=== PATIENT | female | born 1960 | race American Indian/Alaskan Native ===

== ENCOUNTER 2023-09-25 07:48 | Inpatient (IN) ==
[2023-09-19 13:23] LABS: Basophils # (Auto) 0.04 K/mcL (0.00-0.30); Basophils % (Auto) 0.5 % (0.0-2.0); Eosinophils # (Auto) 0.08 K/mcL (0.00-0.70); Hematocrit 51.6 % (34.1-44.9); Hemoglobin 16.5 g/dL (11.2-15.7); Lymphocytes # (Auto) 1.51 K/mcL (1.50-4.80); Lymphocytes % (Auto) 19.7 % (15.5-49.0); Monocytes # (Auto) 0.48 K/mcL (0.10-0.90); Monocytes % (Auto) 6.3 % (1.0-12.0); Neutrophils % (Auto) 72.1 % (38.0-78.0); Platelet Count 277 K/mcL (140-440); RBC 5.55 M/mcL (3.59-5.38); Red Cell Distribution Width 13.5 % (11.5-14.5); WBC 7.7 K/mcL (4.5-11.0)
[2023-09-19 14:33] LABS: Estimated Average Glucose(eAG) 120 mg/dL; Hemoglobin A1C 5.8 % Hgb (4.0-6.0)
[2023-09-19 16:22] LABS: Prothrombin Time 13.1 sec (11.9-14.5)
[2023-09-19 17:01] LABS: Blood Urea Nitrogen 14 mg/dL (8-23); Calcium 9.6 mg/dL (8.6-10.4); Carbon Dioxide 22 mmol/L (22-30); Chloride 95 mmol/L (96-108); Glomerular Filtration Rate 59; Glucose 84 mg/dL (70-105)
[2023-09-24 10:12] LABS: Appearance,Urine Slightly Cloudy (Clear); Bacteria,Urine Many /hpf (0); Bilirubin,Urine Negative (Negative); Color,Urine Yellow; Culture Indicated,Urine Yes; Glucose,Urine (UA) Negative (Negative); Ketones,Urine Negative (Negative); Leukocyte Esterase,Urine Trace /uL (Negative); Nitrate,Urine Positive (Negative); PH,Urine 5.5 (5.0-9.0); Protein,Urine Negative (Negative); Specific Gravity,Urine 1.025 (1.000-1.035); Urine RBC 0 /hpf (0-3); Urine Squamous Epithelial Cell 4 /hpf (0-4); Urine WBC 14 /hpf (0-4); Urobilinogen,Urine Normal
[~2023-09-25 07:48] MED LIST: 0.9 % SODIUM CHLORIDE 250 ML IV SCH; CELECOXIB 200 MG CAPSULE PO SCH; PREGABALIN 100 MG CAPSULE PO SCH; ceFAZolin 2 GM in DEXTROSE 5% IN WATER 50 ML IV SCH; oxyCODONE 10 MG TAB.ER.12H PO SCH
[2023-09-25] MEDS ORDERED: PROPOFOL 200 MG/20 ML VIAL IV ONE (08:39)
[2023-09-25] MEDS ORDERED: ROCURONIUM 10 MG/ML ML IV ONE (08:39)
[2023-09-25] MEDS ORDERED: TRANEXAMIC ACID 1,000 MG/10 ML VIAL ONE (08:39)
[2023-09-25] MEDS ORDERED: ONDANSETRON 4 MG/2 ML VIAL ONE (08:39)
[2023-09-25] MEDS ORDERED: fentaNYL 100 MCG/2 ML VIAL IV ONE (08:39)
[2023-09-25] MEDS ORDERED: DEXAMETHASONE 10 MG/ML VIAL IV ONE (10:50)
[2023-09-25] MEDS ORDERED: ROPIVACAINE HCL/PF 30 ML VIAL IJ ONE (10:50)
[2023-09-25] MEDS ORDERED: METHOCARBAMOL 1,000 MG/10 ML VIAL IV PRN (11:25)
[2023-09-25] MEDS ORDERED: ONDANSETRON 4 MG/2 ML VIAL IV PRN ×2 (11:25→11:37)
[2023-09-25] MEDS ORDERED: IPRATROPIUM/ALBUTEROL 3 ML AMPUL.NEB NEB PRN (11:25)
[2023-09-25] MEDS ORDERED: NALOXONE HCL 0.4 MG/ML VIAL IV PRN (11:25)
[2023-09-25] MEDS ORDERED: fentaNYL 100 MCG/2 ML VIAL IV PRN (11:25)
[2023-09-25] MEDS ORDERED: HYDROmorphone 0.5 MG/0.5 ML SYRINGE IV PRN (11:25)
[2023-09-25] MEDS ORDERED: SUGAMMADEX SODIUM 200 MG/2 ML VIAL IV ONE (11:30)
[2023-09-25] MEDS ORDERED: CIPROFLOXACIN 400 MG/200 ML BAG IV SCH (11:30)
[2023-09-25] MEDS ORDERED: TRANEXAMIC ACID 1,000 MG/10 ML VIAL IV ONE (11:37)
[2023-09-25] MEDS ORDERED: POLYETHYLENE GLYCOL 3350 17 GM PACKET PO PRN (11:37)
[2023-09-25] MEDS ORDERED: ONDANSETRON 4 MG ODT TABLET SL PRN (11:37)
[2023-09-25] MEDS ORDERED: BENZOCAINE/MENTHOL 1 LOZENGE PO PRN (11:37)
[2023-09-25] MEDS ORDERED: BISACODYL 10 MG SUPP.RECT PR PRN (11:37)
[2023-09-25] MEDS ORDERED: FLEETS ADULT 1 DOSE ENEMA PR PRN (11:37)
[2023-09-25] MEDS ORDERED: morphine 4 MG/ML VIAL IV PRN (11:37)
[2023-09-25] MEDS ORDERED: MAGNESIUM HYDROXIDE 30 ML ORAL.SUSP PO PRN (11:37)
[2023-09-25] MEDS ORDERED: KETOROLAC 15 MG/ML VIAL IV PRN (11:37)
[2023-09-25] MEDS ORDERED: PHENYLephrine 1 MG/10 ML SYRINGE (ANEST) ONE (11:40)
[2023-09-25] MEDS ORDERED: METHOCARBAMOL 750 MG TABLET PO SCH (11:45)
[2023-09-25] MEDS: 0.9 % SODIUM CHLORIDE 1,000 ML IV SCH ×2 (13:13→21:58)
[2023-09-25] MEDS: 0.9 % SODIUM CHLORIDE 10 ML SYRINGE IV SCH ×2 (13:32→22:03)
[2023-09-25] MEDS: ceFAZolin 1 GM VIAL IV SCH (16:24)
[2023-09-25] MEDS: PANTOPRAZOLE 40 MG TABLET PO SCH (16:25)
[2023-09-25] MEDS: PREGABALIN 100 MG CAPSULE PO SCH ×2 (16:25→21:20)
[2023-09-25] MEDS: SENNOSIDES 1 TABLET PO SCH (21:19)
[2023-09-25] MEDS: ASPIRIN 81 MG TAB.CHEW PO SCH (21:20)
[2023-09-25] MEDS: DOCUSATE SODIUM 100 MG CAPSULE PO SCH (21:20)
[2023-09-25] MEDS: HYDROcodone/APAP 10/325MG TABLET PO PRN (21:28)
[2023-09-26] MEDS: ceFAZolin 1 GM VIAL IV SCH (00:04)
[2023-09-26] MEDS: 0.9 % SODIUM CHLORIDE 1,000 ML IV SCH ×2 (04:06→12:45)
[2023-09-26] MEDS: 0.9 % SODIUM CHLORIDE 10 ML SYRINGE IV SCH ×3 (05:29→22:20)
[2023-09-26] MEDS: PANTOPRAZOLE 40 MG TABLET PO SCH ×2 (07:20→17:30)
[2023-09-26 07:35] LABS: Hematocrit 34.3 % (34.1-44.9); Hemoglobin 10.8 g/dL (11.2-15.7)
[2023-09-26] MEDS: HYDROcodone/APAP 10/325MG TABLET PO PRN ×2 (08:47→17:30)
[2023-09-26] MEDS: PREGABALIN 100 MG CAPSULE PO SCH ×3 (08:47→20:50)
[2023-09-26] MEDS: DOCUSATE SODIUM 100 MG CAPSULE PO SCH ×2 (08:47→20:50)
[2023-09-26] MEDS: ASPIRIN 81 MG TAB.CHEW PO SCH ×2 (08:47→20:50)
[2023-09-26] MEDS: DULoxetine 30 MG CAPSULE PO SCH (08:47)
[2023-09-26] MEDS: CHLORTHALIDONE 25 MG TABLET PO SCH (08:49)
[2023-09-26] MEDS: SENNOSIDES 1 TABLET PO SCH (20:50)
[2023-09-27] MEDS: 0.9 % SODIUM CHLORIDE 1,000 ML IV SCH ×5 (01:45→20:13)
[2023-09-27] MEDS: HYDROcodone/APAP 10/325MG TABLET PO PRN ×2 (04:42→10:36)
[2023-09-27 06:44] LABS: Hemoglobin 9.7 g/dL (11.2-15.7)
[2023-09-27] MEDS: 0.9 % SODIUM CHLORIDE 10 ML SYRINGE IV SCH ×3 (06:44→21:43)
[2023-09-27] MEDS: PANTOPRAZOLE 40 MG TABLET PO SCH ×2 (07:49→15:59)
[2023-09-27] MEDS: ASPIRIN 81 MG TAB.CHEW PO SCH ×2 (08:28→21:42)
[2023-09-27] MEDS: PREGABALIN 100 MG CAPSULE PO SCH ×3 (08:28→21:42)
[2023-09-27] MEDS: CHLORTHALIDONE 25 MG TABLET PO SCH (08:28)
[2023-09-27] MEDS: METHOCARBAMOL 750 MG TABLET PO PRN (08:28)
[2023-09-27] MEDS: DOCUSATE SODIUM 100 MG CAPSULE PO SCH ×2 (08:28→21:42)
[2023-09-27] MEDS: DULoxetine 30 MG CAPSULE PO SCH (08:28)
[2023-09-27] MEDS: SENNOSIDES 1 TABLET PO SCH (21:42)
[2023-09-28] MEDS: 0.9 % SODIUM CHLORIDE 1,000 ML IV SCH ×3 (04:11→19:39)
[2023-09-28] MEDS: 0.9 % SODIUM CHLORIDE 10 ML SYRINGE IV SCH ×3 (06:35→20:16)
[2023-09-28] MEDS: DOCUSATE SODIUM 100 MG CAPSULE PO SCH ×2 (08:17→20:14)
[2023-09-28] MEDS: PANTOPRAZOLE 40 MG TABLET PO SCH ×2 (08:17→15:46)
[2023-09-28] MEDS: PREGABALIN 100 MG CAPSULE PO SCH ×3 (08:17→20:14)
[2023-09-28] MEDS: ASPIRIN 81 MG TAB.CHEW PO SCH ×2 (08:17→20:14)
[2023-09-28] MEDS: DULoxetine 30 MG CAPSULE PO SCH (08:17)
[2023-09-28] MEDS: CHLORTHALIDONE 25 MG TABLET PO SCH (08:18)
[2023-09-28] MEDS: HYDROcodone/APAP 10/325MG TABLET PO PRN ×2 (10:15→10:16)
[2023-09-28] MEDS: METHOCARBAMOL 750 MG TABLET PO PRN (10:17)
[2023-09-28] MEDS: SENNOSIDES 1 TABLET PO SCH (20:14)
[2023-09-29] MEDS: 0.9 % SODIUM CHLORIDE 1,000 ML IV SCH ×2 (04:21→10:45)
[2023-09-29] MEDS: 0.9 % SODIUM CHLORIDE 10 ML SYRINGE IV SCH (05:41)
[2023-09-29] MEDS: PANTOPRAZOLE 40 MG TABLET PO SCH (08:05)
[2023-09-29] MEDS: ASPIRIN 81 MG TAB.CHEW PO SCH (08:05)
[2023-09-29] MEDS: HYDROcodone/APAP 10/325MG TABLET PO PRN ×2 (08:05→12:16)
[2023-09-29] MEDS: METHOCARBAMOL 750 MG TABLET PO PRN (08:05)
[2023-09-29] MEDS: DULoxetine 30 MG CAPSULE PO SCH (08:05)
[2023-09-29] MEDS: PREGABALIN 100 MG CAPSULE PO SCH (08:05)
[2023-09-29] MEDS: DOCUSATE SODIUM 100 MG CAPSULE PO SCH (08:05)
[2023-09-29] MEDS: CHLORTHALIDONE 25 MG TABLET PO SCH (08:06)
== END 2023-09-29 13:30 | DRG 470 ==
LOC: SUR 07:48 → MEDSUR 13:06
PROVIDERS: ADMIT Orthopaedic Surgery Sports Medicine; ATTEND Orthopaedic Surgery Sports Medicine

== ENCOUNTER 2024-04-02 12:20 | Inpatient (IN) ==
[2024-04-02] MEDS ORDERED: IOPAMIDOL 100 ML BOTTLE IV ONE (12:21)
[2024-04-02 13:04] LABS: Basophils # (Auto) 0.02 K/mcL (0.00-0.30); Basophils % (Auto) 0.1 % (0.0-2.0); Eosinophils # (Auto) 0.03 K/mcL (0.00-0.70); Eosinophils % (Auto) 0.2 % (0.0-7.0); Hematocrit 36.9 % (34.1-44.9); Hemoglobin 11.5 g/dL (11.2-15.7); Lymphocytes # (Auto) 0.96 K/mcL (1.50-4.80); Lymphocytes % (Auto) 5.9 % (15.5-49.0); Mean Cell Volume 77.8 fL (80.0-100.0); Mean Corpuscular HGB Conc 31.2 g/dL (31.0-36.0); Mean Platelet Volume 10.3 fL (8.8-12.5); Monocytes # (Auto) 0.75 K/mcL (0.10-0.90); Monocytes % (Auto) 4.6 % (1.0-12.0); Neutrophils % (Auto) 88.8 % (38.0-78.0); Platelet Count 363 K/mcL (140-440); RBC 4.74 M/mcL (3.59-5.38); Red Cell Distribution Width 17.9 % (11.5-14.5); WBC 16.3 K/mcL (4.5-11.0)
[2024-04-02 13:30] LABS: Alcohol, Blood < 10.1 mg/dL; Alcohol,Blood < 0.010 gm/dL (<0.010)
[2024-04-02 13:32] LABS: ALT/SGPT < 5 U/L (<40); AST/SGOT 16 U/L (<32); Albumin 3.8 gm/dL (3.2-5.2); Alkaline Phosphatase 115 U/L (39-117); Bilirubin,Total 0.5 mg/dL (0.1-1.0); Blood Urea Nitrogen 16 mg/dL (8-23); Calcium 9.1 mg/dL (8.6-10.4); Carbon Dioxide 29 mmol/L (22-30); Chloride 97 mmol/L (96-108); Glomerular Filtration Rate 67; Glucose 103 mg/dL (70-105); Potassium 3.4 mmol/L (3.3-5.1); Sodium 138 mmol/L (133-145); Thyroid Stimulating Hormone 0.71 uIU/mL (0.27-5.01)
[2024-04-02] MEDS: cefTRIAXone 2 GM in DEXTROSE 5% IN WATER 50 ML IV ONE ×2 (14:50→15:13)
[2024-04-02 15:01] LABS: Free T4 (Free Thyroxine) 1.35 ng/dL (0.93-1.70)
[2024-04-02] MEDS: DEXTROSE 5% IN WATER 50 ML IV ONE (15:13)
[2024-04-02] MEDS: 0.9 % SODIUM CHLORIDE 1,000 ML IV ONE ×3 (15:15→23:13)
[2024-04-02] MEDS: ACETAMINOPHEN 1,000 MG/100 ML BAG IV ONE (15:41)
[2024-04-02 16:00] LABS: Appearance,Urine Clear (Clear); Bilirubin,Urine Negative (Negative); Color,Urine Yellow; Culture Indicated,Urine No; Glucose,Urine (UA) Negative (Negative); Ketones,Urine Negative (Negative); Leukocyte Esterase,Urine Negative /uL (Negative); Nitrate,Urine Negative (Negative); Protein,Urine Negative (Negative); Urine Amorphous Crystals Many /hpf; Urine Blood Negative ery/mcL (Negative); Urine Hyaline Cast 2 /lph (0-2); Urine RBC 1 /hpf (0-3); Urine Squamous Epithelial Cell 2 /hpf (0-4); Urine WBC 2 /hpf (0-4); Urobilinogen,Urine Normal
[2024-04-02] MEDS: VANCOMYCIN 1,500 MG in 0.9 % SODIUM CHLORIDE 500 ML IV ONE (17:47)
[2024-04-02 18:11] LABS: Amphetamine Screen,Urine Suspect positive; Barbiturate Screen,Urine None detected; Cannabinoid Screen,Urine Suspect Positive; Cocaine Screen,Urine None detected; Opiate Screen,Urine None detected; Oxycodone, Urine Screen None detected; Phencyclidine Screen,Urine None detected
[2024-04-02 18:59] LABS: Anisocytosis 2+ (None Seen); Band Neutrophils % 7 % (0-10); Basophils % (Manual) 1 % (0-2); Eosinophils % (Manual) 2 % (0-7); Hypochromasia 1+ (None Seen); Lymphocytes % 6 % (15-49); Microcytosis 1+ (None Seen); Monocytes % (Manual) 2 % (1-12); Platelet Estimate NORMAL (Normal); RBC Morphology ABNORMAL (Normal); Segmented Neutrophils % 82 % (38-78)
[2024-04-02 19:08] LABS: C-Reactive Protein 7.8 mg/dL (0.03-0.80); Thyroid Stimulating Hormone 0.73 uIU/mL (0.27-5.01)
[2024-04-02] MEDS: AMPICILLIN SODIUM 1 GM in 0.9 % SODIUM CHLORIDE 50 ML IV ONE (19:57)
[2024-04-02 19:58] LABS: ABG Methemoglobin 0.3 % (0.4-1.5); Total Hemoglobin 11.4 gm/Dl (12.0-15.0); VBG Base Excess 3 (-2-3); VBG HCO3 27.8 mmol/L (24.0-28.0); VBG Oxygen Saturation 89.2 % (40.0-70.0); VBG PCO2 44.7 mmHg (41.0-51.0); VBG PH 7.41 U (7.32-7.42); VBG PO2 73.1 mmHg (25.0-40.0); VBG Total CO2 29.1 mmol/L (25.0-29.0)
[2024-04-02] MEDS: ACYCLOVIR SODIUM 500 MG VIAL IV ONE ×2 (19:59→23:59)
[2024-04-02] MEDS: DEXTROSE 5% IV ONE (20:29)
[2024-04-02] MEDS: ACYCLOVIR SODIUM IV ONE (20:29)
[2024-04-02] MEDS: WATER IV ONE (20:29)
[2024-04-02] MEDS ORDERED: SENNOSIDES 1 TABLET PO PRN (23:02)
[2024-04-02] MEDS ORDERED: VANCOMYCIN PER PHARMACY IV SCH (23:02)
[2024-04-02] MEDS ORDERED: POLYETHYLENE GLYCOL 3350 17 GM PACKET PO PRN (23:02)
[2024-04-02] MEDS ORDERED: MAGNESIUM SULFATE 2 GM/50 ML BAG IV PRN (23:02)
[2024-04-02] MEDS: CEFEPIME 2 GM VIAL IV SCH (23:59)
[2024-04-03 06:06] LABS: Hematocrit 33.3 % (34.1-44.9); Hemoglobin 10.1 g/dL (11.2-15.7); Mean Cell Volume 78.4 fL (80.0-100.0); Mean Corpuscular HGB Conc 30.3 g/dL (31.0-36.0); Mean Platelet Volume 10.6 fL (8.8-12.5); Platelet Count 299 K/mcL (140-440); RBC 4.25 M/mcL (3.59-5.38); Red Cell Distribution Width 17.7 % (11.5-14.5); WBC 7.6 K/mcL (4.5-11.0)
[2024-04-03 06:29] LABS: Hypochromasia 2+ (None Seen); Lymphocytes % 15 % (15-49); Monocytes % (Manual) 5 % (1-12); Platelet Estimate NORMAL (Normal); RBC Morphology ABNORMAL (Normal); Reactive Lymphocytes 1 % (0-2); Segmented Neutrophils % 79 % (38-78)
[2024-04-03 06:30] LABS: ALT/SGPT < 5 U/L (<40); AST/SGOT 14 U/L (<32); Albumin 3.2 gm/dL (3.2-5.2); Albumin/Globulin Ratio 0.9 (1.0-2.3); Alkaline Phosphatase 96 U/L (39-117); Bilirubin,Direct < 0.2 mg/dL (0-0.3); Bilirubin,Total 0.4 mg/dL (0.1-1.0); Blood Urea Nitrogen 10 mg/dL (8-23); Calcium 8.2 mg/dL (8.6-10.4); Carbon Dioxide 28 mmol/L (22-30); Chloride 102 mmol/L (96-108); Globulin 3.4 gm/dL (2.2-3.7); Glomerular Filtration Rate 90; Glucose 94 mg/dL (70-105); Lactate Dehydrogenase 142 U/L (135-225); Phosphorous 2.3 mg/dL (2.5-4.5); Potassium 2.8 mmol/L (3.3-5.1); Sodium 140 mmol/L (133-145); Triglycerides 79 mg/dL (<150); Uric Acid 5.6 mg/dL (2.5-8.0)
[2024-04-03] MEDS: POTASSIUM CHLORIDE 20 MEQ TABLET PO PRN (07:22)
[2024-04-03] MEDS: VANCOMYCIN 1,250 MG in 0.9 % SODIUM CHLORIDE 500 ML IV SCH (07:24)
[2024-04-03] MEDS: SODIUM CHLORIDE 0.9% IV SCH (09:03)
[2024-04-03] MEDS: ACYCLOVIR SODIUM IV SCH (09:03)
[2024-04-03] MEDS: DOCUSATE SODIUM 100 MG CAPSULE PO SCH (10:32)
[2024-04-03] MEDS: LORazepam 2 MG/ML VIAL IV SCH (11:36)
[2024-04-03] MEDS ORDERED: GADOBENATE DIMEGLUMINE 20 ML/VIAL IV ONE (12:14)
[2024-04-03] MEDS: POTASSIUM CHLORIDE 40 MEQ in DEXTROSE 5% IN WATER 500 ML IV PRN (12:38)
[2024-04-03] MEDS: ENOXAPARIN 40 MG/0.4 ML SYRINGE SQ SCH (12:39)
[2024-04-03] MEDS: ACETAMINOPHEN 325 MG TABLET PO PRN (21:15)
[2024-04-04 06:19] LABS: ALT/SGPT < 5 U/L (<40); AST/SGOT 16 U/L (<32); Albumin 3.2 gm/dL (3.2-5.2); Albumin/Globulin Ratio 0.9 (1.0-2.3); Alkaline Phosphatase 92 U/L (39-117); Bilirubin,Direct < 0.2 mg/dL (0-0.3); Bilirubin,Total 0.3 mg/dL (0.1-1.0); Blood Urea Nitrogen 7 mg/dL (8-23); Calcium 9.2 mg/dL (8.6-10.4); Carbon Dioxide 26 mmol/L (22-30); Chloride 105 mmol/L (96-108); Globulin 3.5 gm/dL (2.2-3.7); Glomerular Filtration Rate 95; Glucose 92 mg/dL (70-105); Lactate Dehydrogenase 163 U/L (135-225); Phosphorous 2.3 mg/dL (2.5-4.5); Potassium 3.2 mmol/L (3.3-5.1); Sodium 139 mmol/L (133-145); Triglycerides 89 mg/dL (<150); Uric Acid 5.5 mg/dL (2.5-8.0)
[2024-04-04] MEDS: POTASSIUM CHLORIDE 20 MEQ TABLET PO PRN (07:01)
[2024-04-04] MEDS: ONDANSETRON 4 MG/2 ML VIAL IV PRN (07:07)
[2024-04-04] MEDS: DULoxetine 30 MG CAPSULE PO SCH (08:34)
[2024-04-04] MEDS: PREGABALIN 100 MG CAPSULE PO ONE (08:35)
[2024-04-04] MEDS: IPRATROPIUM/ALBUTEROL 3 ML AMPUL.NEB NEB PRN (09:01)
[2024-04-04] MEDS: PANTOPRAZOLE 40 MG TABLET PO SCH (10:12)
[2024-04-04] MEDS: PREGABALIN 25 MG CAPSULE PO SCH ×2 (10:13→22:41)
[2024-04-04] MEDS: cefTRIAXone 2 GM VIAL IM SCH (12:21)
[2024-04-04] MEDS: LINEZOLID 600 MG TABLET PO SCH (12:22)
[2024-04-04] MEDS: CLINDAMYCIN 150 MG CAPSULE PO SCH (15:27)
[2024-04-04] MEDS: ARIPIPRAZOLE 5 MG TABLET PO SCH (22:39)
[2024-04-04] MEDS: MELATONIN 3 MG TABLET PO SCH (22:42)
[2024-04-05 06:10] LABS: ALT/SGPT < 5 U/L (<40); AST/SGOT 16 U/L (<32); Albumin 3.3 gm/dL (3.2-5.2); Albumin/Globulin Ratio 0.9 (1.0-2.3); Alkaline Phosphatase 91 U/L (39-117); Bilirubin,Direct < 0.2 mg/dL (0-0.3); Bilirubin,Total 0.3 mg/dL (0.1-1.0); Blood Urea Nitrogen 6 mg/dL (8-23); C-Reactive Protein 6.06 mg/dL (0.03-0.80); Calcium 9.3 mg/dL (8.6-10.4); Carbon Dioxide 25 mmol/L (22-30); Chloride 102 mmol/L (96-108); Globulin 3.7 gm/dL (2.2-3.7); Glomerular Filtration Rate 95; Glucose 92 mg/dL (70-105); Lactate Dehydrogenase 174 U/L (135-225); Phosphorous 2.9 mg/dL (2.5-4.5); Potassium 3.2 mmol/L (3.3-5.1); Sodium 138 mmol/L (133-145); Triglycerides 83 mg/dL (<150)
[2024-04-05] MEDS: CEFDINIR 300 MG CAPSULE PO SCH (11:10)
[2024-04-05] MEDS: ONDANSETRON 4 MG ODT TABLET SL PRN (17:09)
[2024-04-05] MEDS: diphenhydrAMINE 25 MG CAPSULE PO PRN (20:13)
[2024-04-06] MEDS: AMOXICILLIN/POTASSIUM CLAV 875 MG TABLET PO SCH (10:41)
[2024-04-09 16:08] LABS: Amphetamine Screen Positive
== END 2024-04-06 11:56 | disposition home or self-care (01) | DRG 871 ==
LOC: ED 12:20 → MEDSUR 22:24
PROVIDERS: ADMIT Internal Medicine; ATTEND Internal Medicine